=== PATIENT | female | born 1955 | race Caucasian/White ===

== ENCOUNTER → 2016-08-21 | Outpatient (CLI) | payer OTHER ==
[~2016-08-21] MED LIST: ADVIL200 M2 PO; BLOOD PRESSURE MED; CATAPRES0.1 MG PO; COZAAR; GABAPENTIN300 M2; HYDROCODON-ACE1 EAC5 PO; LIPITOR PO; OMEGA 3 FISH1 CAP.EC PO; PANTOPRAZOLE SO40 MG PO; PROZAC PO; [UNRECOGNIZED DRUG - REMARK]
--- NOTE | ~2016-08-21 | US98 ---
[facility] A Service of [facility] & [facility] RADIOLOGY TEXT RESULTS PATIENT: ANA M WESTBROOK LOCATION: [facility] : 57 UNIT #: [id number] AGE: [address]: ARDEN OCAMPO APRN SEX: F ORDER DR: [id number] [facility] [address] [place], [place] [address] [id number] O MR#: [id number] Acc #: [id number] NAME: ANA M WESTBROOK : 1955 SEX: F STUDY DATE/TIME: 08/21/2016 11:54 UNIT: [facility] ROOM: STUDY DESCRIPTION: US Pelvic Non-OB Complete Attending Physician: Clemente Ocampo Aprn Referring Physician: Clemente Ocampo Aprn Ordering Physician: Clemente Ocampo Aprn Primary Care Physician: Boston Omer M.D. MEDICAL IMAGING REPORT This report is preliminary unless electronic signature is present EXAM Pelvic ultrasound INDICATION Bilateral groin pain for 1 month. Patient has been postmenopausal for 10 years. TECHNIQUE Pace-scale, color Doppler, and spectral Doppler waveform analysis was performed through the pelvis both transabdominal and transvaginally. FINDINGS This patient's endometrium is abnormally and irregular thickened measuring up to 8 mm in thickness. This is abnormal in appearance for a 61-year-old postmenopausal woman. Gynecologic consultation for consideration for endometrial biopsy is recommended. The ovaries have a normal appearance with no solid or cystic masses seen. Patient is noted to have normal color-Doppler flow within both ovaries. No free fluid is seen within the cul-de-sac. IMPRESSION Abnormal appearance to the patient's endometrium which is thickened irregular measuring up to 8 mm in thickness. There is also a small amount of fluid seen within the endometrial canal. The possibility of underlying neoplasm cannot be excluded. Gynecologic consultation for consideration for an endometrial biopsy is recommended. Dictated by... Arelis Garcia M.D. THIS IS AN ELECTRONICALLY VERIFIED REPORT Arelis Garcia M.D. at 08/26/2016 7:55 AM [facility] A Service of [facility] & [facility] RADIOLOGY TEXT RESULTS PATIENT: ANA M WESTBROOK LOCATION: [facility] #: [id number] : [birth year] UNIT #: [id number] AGE: [address]: ARDEN OCAMPO APRN SEX: F ORDER DR: Jaxon TD: 08/24/2016 15:35 JOB #: [id number] MEDICAL IMAGING REPORT Page 1 of 1 COPY
== END | disposition home or self-care (01) ==
LOC: CWCC 10:29
DX: R10.32 Left lower quadrant pain (principal); R10.31 Right lower quadrant pain; R93.8 Abnormal findings on diagnostic imaging of other specified body structures
CPT/HCPCS: 76856

== ENCOUNTER → 2016-10-09 | Day surgery (SDC) | payer OTHER ==
--- NOTE | ~2016-10-09 | OR ---
Unit #: [id number] #: [id number] Patient: ANA M WESTBROOK [id number] [address] [address] [id number] O MR#: [id number] NAME: ANA M WESTBROOK ROOM: Date of Procedure: 10/09/2016 Admission Date: 10/09/2016 Surgeon: Lencho Gallo M.D. : 1955 Attending Physician: Lencho Gallo M.D. Primary Care Physician: Boston Omer M.D. OPERATIVE REPORT PREOPERATIVE DIAGNOSIS Dyspepsia. PROCEDURE PERFORMED Upper gastrointestinal endoscopy. POSTOPERATIVE DIAGNOSES Mild antral gastritis in the form of erythema, otherwise normal examination up to third part of duodenum. A biopsy was obtained from the antrum for CLOtest. RECOMMENDATIONS The patient is being started on empiric pantoprazole 40 mg p.o. daily. She will be followed up in the office in 8 to 10 weeks' time. SEDATION USED MAC. DESCRIPTION OF PROCEDURE Following detailed explanation of the potential risks and complications of an upper endoscopy, namely perforation, bleeding, and complications related to sedation, the patient was brought to GI lab and laid in the left lateral decubitus position. Lubricated tip of the Olympus video upper endoscope was passed through the bite block into the proximal esophagus under direct vision. The entire esophageal mucosa was examined and appeared normal. Z-line was nicely demarcated, there being no esophagitis or hiatus hernia. The scope was then advanced into the gastric cavity and the latter was insufflated. Mucosa of the fundus, body, and antrum was examined and mild prepyloric antral erythema was noted indicating antral gastritis. Pylorus was intubated with visualization of normal duodenal bulb and second and third part of the duodenum. Upon withdrawal and retroflexion, incisura, cardia, and greater curve was examined and biopsy was obtained from the antrum for CLOtest. The scope was then withdrawn in the distal esophagus. The entire esophageal mucosa was examined all the way up to pharynx. No additional findings were noted. The patient tolerated the procedure without any postprocedure complications. Dictated by... Lencho Gallo M.D. Unit #: [id number] #: [id number] Patient: ANA M WESTBROOK Tracy TD: 10/09/2016 13:11 JOB #: [id number] OPERATIVE REPORT Page 1 of 1 X Lencho Gallo MD PROCEDURE OPERATIVE NOTE
== END | disposition home or self-care (01) ==
LOC: COPS 06:40
PROVIDERS: Internal Medicine Gastroenterology
PROC: 0DB78ZX Excision of Stomach, Pylorus, Via Natural or Artificial Opening Endoscopic, Diagnostic (ICD-10-PCS; principal; 2016-10-09 07:30)
DX: K29.60 Other gastritis without bleeding (principal); E66.9 Obesity, unspecified; Z68.33 Body mass index [BMI] 33.0-33.9, adult; Z79.899 Other long term (current) drug therapy; Z79.1 Long term (current) use of non-steroidal anti-inflammatories (NSAID); Z90.12 Acquired absence of left breast and nipple; Z90.49 Acquired absence of other specified parts of digestive tract
CPT/HCPCS: 87077